=== PATIENT | female | born 1985 | race Caucasian/White ===

== ENCOUNTER → 2024-03-18 | Outpatient (CLI) | payer BC, SELFPAY ==
[2024-03-18 10:26] LABS: Basophils # (Auto) 0.1 Thou/mm3 (0.0-0.2); Basophils % (Auto) 1 % (0-2.5); Eosinophils # (Auto) 0.2 Thou/mm3 (0.0-0.5); Eosinophils % (Auto) 3 % (0-10); Hematocrit 41.2 % (36.0-46.0); Hemoglobin 14.8 g/dL (12.0-16.0); Immature Granulocytes % (Auto) 0 % (0-0); Immature Granulocytes Auto 0.01 Thou/mm3 (0.00-0.00); Lymphocytes # (Auto) 2.2 Thou/mm3 (1.0-4.8); Lymphocytes % (Auto) 35 % (10-50); Mean Corpuscular HGB Conc 35.9 g/dl (31.0-37.0); Mean Corpuscular Volume 95 fL (80-100); Monocytes # (Auto) 0.4 Thou/mm3 (0.0-0.8); Monocytes % (Auto) 6 % (0-12); Neutrophils # (Auto) 3.4 Thou/mm3 (1.8-7.7); Neutrophils % (Auto) 55 % (37-80); Nucleated Red Blood Cell % 0 /100 WBC (0); Platelet Count 230 Thou/mm3 (140-440); RDW Standard Deviation 41.8 fL (36.4-46.3); Red Blood Count 4.35 Miln/mm3 (4.00-5.20); White Blood Count 6.2 Thou/mm3 (3.6-11.0)
[2024-03-18 10:33] LABS: Glucose Estimated Average 88 mg/dL (80-131); Hemoglobin A1C 4.7 % Hgb (4.8-6.0)
[2024-03-18 10:52] LABS: Alanine Aminotransferase 13 U/L (10-49); Albumin, Serum 4.4 gm/dL (3.5-5.0); Albumin/Globulin Ratio 1.8 (1.2-2.2); Alkaline Phosphatase 57 U/L (46-116); Anion Gap 7 (7-16); Aspartate Amino Transferase 13 U/L (0-34); BUN/Creatinine Ratio 19 Ratio (12-20); Bilirubin,Total 0.6 mg/dL (0.3-1.2); Blood Urea Nitrogen 13 mg/dL (9-23); Calcium 9.7 mg/dL (8.3-10.6); Calcium (Corrected) 9.7 mg/dL (8.5-10.1); Carbon Dioxide 27.1 mMol/L (20.0-31.0); Cardiac Risk Estimate 3.3 RATIO (3.7-5.6); Chloride 106 mMol/L (98-107); Cholesterol 189 mg/dL (132-200); Creatinine (Component) 0.7 mg/dL (0.6-1.3); Free T4 (Free Thyroxine) 1.13 ng/dL (0.89-1.76); Globulin 2.4 gm/dL (2.3-3.5); Glucose 91 mg/dL (74-106); HDL Cholesterol 58 mg/dL (40-60); LDL Cholesterol,Calculated 115 mg/dL (0-130); Osmolality,Calculated 279 (275-295); Potassium 5.1 mMol/L (3.4-5.1); Sodium 140 mMol/L (136-145); Thyroid Stimulating Hormone 1.91 uIU/mL (0.55-4.78); Total Protein 6.8 gm/dL (5.7-8.2); Triglycerides 78 mg/dL (30-150); eGFR > 60 See Note
== END | disposition home or self-care (01) ==
PROVIDERS: PCP Family Medicine; Referring Provider Physician Assistant Medical; Visit Provider Physician Assistant Medical
DX: Z00.00 Encounter for general adult medical examination without abnormal findings (principal); N93.9 Abnormal uterine and vaginal bleeding, unspecified; Z13.1 Encounter for screening for diabetes mellitus
CPT/HCPCS: 36415; 80053; 80061; 83036; 84439; 84443; 85025

== ENCOUNTER 2024-04-21 06:20 | Day surgery (SDC) | payer BC, SELFPAY ==
--- NOTE | 2024-04-18 10:16 | ESHP_ITS ---
RE: ILIA SAENZ : 1985 DATE OF ADMISSION: 04/21/2024 HISTORY OF PRESENT ILLNESS: This is a 38-year-old 5, para 4-0-1-4 who is multiparous and desires voluntary sterilization. She currently has an IUD in place, which she wants to removed. She also previous to the IUD insertion separate from abnormal uterine bleeding and therefore wants to undergo endometrial ablation and at that time, the IUD is removed. ALLERGIES: NO KNOWN DRUG ALLERGIES. MEDICATIONS: Mirena IUD. 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 SOCIAL HISTORY: She is . She denies any alcohol, drug use, or smoking. FAMILY HISTORY: Brain cancer, lung cancer, diabetes, heart disease, COPD, osteoporosis. OBSTETRIC HISTORY: Four previous full-term normal vaginal deliveries and one spontaneous in the first trimester. PAST SURGICAL HISTORY: Denies. REVIEW OF SYSTEMS: She denies any chest pain, palpitations, cough, fever, shortness of breath, or lower extremity pain. PHYSICAL EXAMINATION: VITAL SIGNS: Blood pressure 110/70, heart rate 88, respirations 18, temperature 98.2 degrees. HEENT: Oropharynx and sclerae are clear. LUNGS: Clear to auscultation bilaterally. HEART: Regular rate and rhythm. ABDOMEN: Nontender. EXTREMITIES: Nontender. SKIN: No gross rashes or lesions. NEUROLOGIC: No focal deficits. ASSESSMENT: Multiparity, desires voluntary sterilization, abnormal uterine bleeding, desires IUD removal. PLAN: Laparoscopic bilateral salpingectomy, hysteroscopy, fractional dilatation and curettage, NovaSure endometrial ablation, and removal of IUD. Informed consent was obtained. The patient was made aware of the risks, complications, alternatives, and benefits of the proposed procedure and she agrees. She is aware of the failure rate and the increased risk of tubal ectopic gestation if occurs. She is aware of the reversal methods of control. She declines these methods. She is aware that vasectomy is simpler, easier, and safer, less risky with a lower failure rate. She declines that option. She is aware of the risk of injury to bowel or bladder, uterus, adjacent organs, pulmonary embolism, deep vein thrombosis, injury to the vessels of the abdominal wall, hematoma, abscess, wound infection, wound dehiscence, pelvic infection, reoperation to repair injury to internal organs, anesthesia complications, and the possibility that a laparotomy needs to be performed to complete the procedure or control bleeding and the possibility the procedure is not able to be completed due to severe adhesions or technical difficulties. DT: 09:02:18 TT: 10:15:00 Ref: [id number] - TID: [id number] MTDD
[2024-04-20 11:50] VITALS: BMI 25.2
[2024-04-20 13:31] LABS: Basophils # (Auto) 0.1 Thou/mm3 (0.0-0.2); Basophils % (Auto) 1 % (0-2.5); Eosinophils # (Auto) 0.2 Thou/mm3 (0.0-0.5); Eosinophils % (Auto) 4 % (0-10); Hematocrit 38.9 % (36.0-46.0); Hemoglobin 14.1 g/dL (12.0-16.0); Immature Granulocytes % (Auto) 0 % (0-0); Immature Granulocytes Auto 0.01 Thou/mm3 (0.00-0.00); Lymphocytes # (Auto) 2.2 Thou/mm3 (1.0-4.8); Lymphocytes % (Auto) 34 % (10-50); Mean Corpuscular HGB Conc 36.2 g/dl (31.0-37.0); Mean Corpuscular Hemoglobin 34.5 pg (25.0-35.0); Mean Corpuscular Volume 95 fL (80-100); Monocytes # (Auto) 0.3 Thou/mm3 (0.0-0.8); Monocytes % (Auto) 5 % (0-12); Neutrophils # (Auto) 3.7 Thou/mm3 (1.8-7.7); Neutrophils % (Auto) 56 % (37-80); Nucleated Red Blood Cell % 0 /100 WBC (0); Platelet Count 212 Thou/mm3 (140-440); RDW Standard Deviation 42.3 fL (36.4-46.3); Red Blood Count 4.09 Miln/mm3 (4.00-5.20); White Blood Count 6.5 Thou/mm3 (3.6-11.0)
[2024-04-20 13:42] LABS: Partial Thromboplastin Time 27.1 Seconds (22.0-36.0); Prothrombin Time 10.6 Seconds (9.0-12.2)
[2024-04-20 13:45] LABS: Alanine Aminotransferase 16 U/L (10-49); Albumin, Serum 4.2 gm/dL (3.5-5.0); Albumin/Globulin Ratio 1.7 (1.2-2.2); Alkaline Phosphatase 58 U/L (46-116); Anion Gap 7 (7-16); Aspartate Amino Transferase 17 U/L (0-34); BUN/Creatinine Ratio 22 Ratio (12-20); Beta HCG,Quantitative < 1 mIU/mL (<5.0); Bilirubin,Total 0.3 mg/dL (0.3-1.2); Blood Urea Nitrogen 20 mg/dL (9-23); Calcium 9.6 mg/dL (8.3-10.6); Calcium (Corrected) 9.6 mg/dL (8.5-10.1); Carbon Dioxide 26.6 mMol/L (20.0-31.0); Chloride 108 mMol/L (98-107); Creatinine (Component) 0.9 mg/dL (0.6-1.3); Estimated Creatinine Clearance 71.5 mL/min (>60); Globulin 2.5 gm/dL (2.3-3.5); Glucose 91 mg/dL (74-106); Osmolality,Calculated 285 (275-295); Potassium 4.1 mMol/L (3.4-5.1); Sodium 142 mMol/L (136-145); Total Protein 6.7 gm/dL (5.7-8.2); eGFR > 60 See Note
[2024-04-21] VITALS (7 sets, daily range): BP systolic 107–125; BP diastolic 61–76; PULSE 65–82; RESP 14–20; TEMP 36.9–37.2; O2SAT 97–100; BMI 25.0
--- NOTE | 2024-04-21 09:57 | SUR.PHASEI ---
0957 Patient arrived to recovery, awake and alert, breathing unlabored, vital signs stable, denies pain, dressing intact to lower abdomen; dermabond, to vaginal area; peripad, no bleeding noted, denies pain, lung sounds clear upon auscultation, denies nausea, report received from Julian SALDANA and Dr. Prieto
--- NOTE | 2024-04-21 10:55 | SUR.PHASEII ---
1055 Patient meets discharge criteria from recovery, awake and alert, breathing unlabored, vital signs stable, denies pain, dressing intact; no bleeding noted, patient ate a jello and drinking apple juice; tolerating well, denies nausea, patient able to dress herself into her clothing, discharge instructions given to patient and patients with the teach-back approach, both receptive of instructions, signed discharge instructions. Patient given all her belongings prior to discharge, transported via wheelchair, ambulated to car with steady gait, and left in a private vehicle.
--- NOTE | 2024-04-21 19:21 | ESOP_ITS ---
RE: ILIA SAENZ : 1985 DATE OF OPERATION: 04/21/2024 PREOPERATIVE DIAGNOSES: 1. Multiparity, desires voluntary sterilization. 2. Desires intrauterine device removal. 3. Abnormal uterine bleeding. POSTOPERATIVE DIAGNOSES: 1. Multiparity, desires voluntary sterilization. 2. Desires intrauterine device removal. 3. Abnormal uterine bleeding. PROCEDURE PERFORMED: A laparoscopic bilateral salpingectomy, hysteroscopy, intrauterine device removal, fractional dilatation and curettage, and NovaSure endometrial ablation. SURGEON: Nestor Lora DO SOCIAL SERVICES DESIGNEE: MADHU Roman ANESTHESIA: General. ANESTHESIOLOGIST: Dr. Prieto. ESTIMATED BLOOD LOSS: 5 mL. COMPLICATIONS: None. COUNTS: Correct. PATHOLOGY: 1. IUD. 2. Right fallopian tube. 3. Left fallopian tube. 4. Endocervical curettings. 5. Endometrial curettings. FINDINGS: Uterus sounds to 9.0 cm, anteverted. Cervical length is 3.0 cm. Uterine cavity length is 6.0 cm. Uterine cavity width is 3.0 cm. Power setting is 99 up. Duration of ablation is 1 minute and 8 seconds. Fluids absorbed hysteroscopically 25 mL. DESCRIPTION OF PROCEDURE: After proper informed consent was obtained and the patient was made aware of the risks, complications, alternatives, and benefits of the proposed procedure, she was taken to the operating room where she underwent induction of general anesthesia. She was placed in the dorsal lithotomy position. She was prepped and draped in the usual sterile fashion. A timeout was performed. A speculum was placed in the vagina. A single-tooth tenaculum was used to grasp the anterior lip of the cervix. The acorn uterus manipulator was placed after the intrauterine device was removed. The intrauterine device was removed complete and intact and sent to pathology. Attention was then turned to the abdomen where the physician regowned and gloved and a 5 mm incision was made above the umbilicus. Through this 5 mm incision, an insufflator needle was placed and attached to the insufflator after saline confirmed intraabdominal placement. An artificial pneumoperitoneum was created to 12 mmHg. The Veress needle was then removed and the 5-mm trocar was inserted with tenting up the abdomen. The laparoscope-connected video camera was then utilized to visualize the pelvis. A second incision was made in the midline 2 cm above the symphysis pubis. Through this 5-mm incision, a 5-mm trocar was inserted under direct visualization of the laparoscope. Attention was then turned to the left lower quadrant where a 5-mm incision was made. Through this 5-mm incision, a 5 mm trocar was inserted under direct visualization of the laparoscope. Using the Santo and Willie grasper and the 1136 Harmonic saud, the right salpingectomy was performed without difficulty and hemostasis was achieved. Specimen was sent to pathology. Attention was then turned to the left fallopian tube, which was grasped in the fimbriated end and using the Harmonic scalpel, left salpingectomy was performed. Hemostasis was achieved. Specimen was sent to pathology. Pelvis and abdomen was visualized and no abnormalities were noted. There was no evidence of endometriosis or pelvic adhesions. The trocars were removed from the abdomen after the carbon dioxide was removed from the peritoneal cavity. The incisions were infiltrated with Marcaine 0.5% plain and covered with Monocryl and Dermabond. Attention was then turned to the vagina where the acorn manipulator was removed and using the Omni hysteroscope, the 5.5-mm hysteroscope was then utilized to visualize the endocervix and uterine cavity and the above findings noted. The endocervix was curetted and specimen was sent to pathology. The uterine cavity was curetted and specimen was sent to pathology. The uterus sounded to 9.0 cm, anteverted. The cervical length measured 3.0 cm and the NovaSure catheter was plugged into the controller and went through its purge cycle, 6.0 was entered on the cavity length. The array was retracted into the sheath. The catheter was appropriately seated in the uterine cavity and the width meter read 3.0 cm. The carbon dioxide cavity integrity assessment test was performed. The cavity was intact and the ablation was performed for a total of 1 minute and 8 seconds at 99 up before the controller shut off. The array was retracted into the sheath. The catheter was removed from the uterine cavity. It was redeployed and found to be complete and intact. The patient was reversed from general anesthesia in the supine position and transferred to the recovery room in stable condition. She tolerated the procedure well. Counts were correct. I discussed with the patient's the nature of her condition, the intraoperative findings, expectation for recovery. All questions were answered. DT: 09:46:15 TT: 11:14:00 Ref: [id number] - TID: [id number]
== END 2024-04-21 10:55 | disposition home or self-care (01) ==
PROVIDERS: PCP Family Medicine; Referring Provider Specialist; Visit Provider Specialist
PROC: 0U5B8ZZ Destruction of Endometrium, Via Natural or Artificial Opening Endoscopic (ICD-10-PCS; CPT 58563; principal; 2024-04-21 08:30)
PROC: (CPT 58670; 2024-04-21 08:30)
PROC: (CPT 58301; 2024-04-21 08:30)
DX: Z30.2 Encounter for sterilization (principal); Z64.1 Problems related to multiparity; N85.00 Endometrial hyperplasia, unspecified
CPT/HCPCS: 58301; 58563; 58340; 36415; 80053; 84702; 85025; 85610; 85730; 86850; 86900; 86901; A4217; A4649; J0690; J1100; J1885; J2250; J2405; J2704; J3010; J3490; J0665

== ENCOUNTER → 2024-09-01 | Outpatient (CLI) | payer BC, SELFPAY ==
[2024-09-01 09:53] LABS: Basophils # (Auto) 0.1 Thou/mm3 (0.0-0.2); Basophils % (Auto) 1 % (0-2.5); Eosinophils # (Auto) 0.2 Thou/mm3 (0.0-0.5); Eosinophils % (Auto) 3 % (0-10); Hematocrit 38.9 % (36.0-46.0); Hemoglobin 13.9 g/dL (12.0-16.0); Immature Granulocytes Auto 0.01 Thou/mm3 (0.00-0.00); Lymphocytes # (Auto) 1.8 Thou/mm3 (1.0-4.8); Lymphocytes % (Auto) 32 % (10-50); Mean Corpuscular HGB Conc 35.7 g/dl (31.0-37.0); Mean Corpuscular Hemoglobin 34.8 pg (25.0-35.0); Mean Corpuscular Volume 97 fL (80-100); Monocytes # (Auto) 0.4 Thou/mm3 (0.0-0.8); Monocytes % (Auto) 7 % (0-12); Neutrophils # (Auto) 3.2 Thou/mm3 (1.8-7.7); Neutrophils % (Auto) 57 % (37-80); Nucleated Red Blood Cell # 0.00 Thou/mm3 (0.00-0.00); Nucleated Red Blood Cell % 0 /100 WBC (0); Platelet Count 200 Thou/mm3 (140-440); RDW Standard Deviation 42.5 fL (36.4-46.3); Red Blood Count 4.00 Miln/mm3 (4.00-5.20); White Blood Count 5.6 Thou/mm3 (3.6-11.0)
[2024-09-01 10:02] LABS: Glucose Estimated Average 80 mg/dL (80-131); Hemoglobin A1C 4.4 % Hgb (4.8-6.0)
[2024-09-01 10:20] LABS: Ferritin 106 ng/mL (7.3-270.7); Follicle Stimulating Hormone 5.77 mIU/mL (See Note); Iron 236 mcg/dL (50-170); Percent Iron Saturation 73 % (20-55); Total Iron Binding Capacity 320 mcg/dL (250-425); Unsaturated Iron Binding 84 (225-295); Vitamin B12 657 pg/mL (211-911)
[2024-09-01 10:21] LABS: Alanine Aminotransferase 17 U/L (10-49); Albumin, Serum 4.3 gm/dL (3.5-5.0); Albumin/Globulin Ratio 1.9 (1.2-2.2); Alkaline Phosphatase 58 U/L (46-116); Anion Gap 9 (7-16); Aspartate Amino Transferase 16 U/L (0-34); BUN/Creatinine Ratio 11 Ratio (12-20); Beta HCG,Quantitative < 1 mIU/mL (<5.0); Bilirubin,Total 0.7 mg/dL (0.3-1.2); Blood Urea Nitrogen 9 mg/dL (9-23); Calcium 9.1 mg/dL (8.3-10.6); Calcium (Corrected) 9.1 mg/dL (8.5-10.1); Carbon Dioxide 27.6 mMol/L (20.0-31.0); Chloride 107 mMol/L (98-107); Creatinine (Component) 0.8 mg/dL (0.6-1.3); Free T4 (Free Thyroxine) 1.14 ng/dL (0.89-1.76); Globulin 2.3 gm/dL (2.3-3.5); Glucose 88 mg/dL (74-106); Osmolality,Calculated 284 (275-295); Potassium 3.8 mMol/L (3.4-5.1); Sodium 144 mMol/L (136-145); Thyroid Stimulating Hormone 2.10 uIU/mL (0.55-4.78); Total Protein 6.6 gm/dL (5.7-8.2); eGFR > 60 See Note
[2024-09-01 10:34] LABS: Syphilis Nonreactive (Nonreactive)
[2024-09-14 07:39] LABS: ANA Screen, IFA NEGATIVE (NEGATIVE); DHEA Sulfate* 224 mcg/dL (23-266); Estrogen, Total, Serum* 362 pg/mL; Luteinizing Hormone* 3.8 mIU/mL; Progesterone,LC/MS* 3.5 ng/mL; Prolactin* 11.2 ng/mL; Testosterone, Free,Dialysis 3.6 pg/mL (0.1-6.4); Testosterone, Total, Dialysis 33 ng/dL (2-45)
== END | disposition home or self-care (01) ==
LOC: COPL 08:56
PROVIDERS: PCP Family Medicine; Referring Provider Specialist; Visit Provider Specialist
DX: N93.9 Abnormal uterine and vaginal bleeding, unspecified (principal); R53.83 Other fatigue
CPT/HCPCS: 36415; 80053; 82607; 82627; 82672; 82728; 83001; 83002; 83036; 83540; 83550; 84144; 84146; 84402; 84403; 84439; 84443; 84702; 85025; 86038; 86780

== ENCOUNTER → 2024-11-11 | Outpatient (CLI) | payer BC, SELFPAY ==
[2024-11-11 13:25] LABS: Glucose Estimated Average 85 mg/dL (80-131); Hemoglobin A1C 4.6 % Hgb (4.8-6.0)
[2024-11-17 06:55] LABS: C-Peptide* 1.07 ng/mL (0.80-3.85)
== END | disposition home or self-care (01) ==
LOC: COPL 11:39
PROVIDERS: PCP Family Medicine; Referring Provider Family Medicine; Visit Provider Family Medicine
DX: E16.2 Hypoglycemia, unspecified (principal)
CPT/HCPCS: 36415; 83036; 84681